=== PATIENT | male | born 1980 | race Caucasian/White ===

== ENCOUNTER 2019-11-01 20:48 | Emergency (ER) | payer SELFPAY ==
[2019-11-01 21:13] VITALS: PULSE 91; RESP 18; TEMP 36.4; O2SAT 96; BMI 31.1
--- NOTE | 2019-11-01 21:20 | PC.NURSE ---
Justin Espinosa pt's rosie [phone]. Wishes to provide information regarding pt's cc
--- NOTE | 2019-11-01 21:23 | W.ED.BACK ---
HPI - Back Pain/Injury General: Chief Complaint: Back Pain/Injury Stated Complaint: back pain Time Seen by Provider: 11/01/19 21:13 History of Present Illness: HPI Narrative: Patient is a 39-year-old male who comes to the ED with back pain. Back pain started last Wednesday, October 27. 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 Patient says he was working over his 's car and stepped in a pothole with his left foot and kind of jolted his lower back and ever since then he has had left lower back pain along with pain radiating down left leg to his knee. Patient went to [facility] 2 days ago and was given a muscle relaxer and diclofenac. Pain has not improved and only gotten worse. Patient reports some muscle spasms on left lumbar region as well. He reports having subjective fever and chills these past couple days. Denies dysuria or hematuria. He does state that his urine is darker in color. Denies any bladder or bowel incontinence or any pelvic anesthesia. He describes pain being worse when he gets up and walks and when he ambulates pain continually runs down his left leg. Associated symptoms: Deny abdominal pain, chills, dysuria, fatigue, fever(s), hematuria, nausea or vomiting Review of Systems Const: Denies: fever, chills or fatigue Eyes: Denies: change in vision or eye discomfort ENMT: Denies: throat pain, painful swallowing, nasal discharge or nasal congestion Card: Denies: chest pain, palpitations, edema, swelling of feet/ankles, shortness of breath on exertion or shortness of breath when lying down Resp: Denies: shortness of breath, productive cough or non-productive cough GI: Denies: abdominal pain, nausea, vomiting, diarrhea, constipation or blood in stool : Denies: flank pain, difficulty urinating, painful urination or blood in urine Musc: Reports: back pain; Denies: neck pain or extremity swelling Skin/Breast: Denies: rash or new lesion Neuro: Denies: headache, numbness in extremities or weakness in extremities PFSH ED PFSH: Social History Smoking and tobacco status: current every day smoker Physical Exam Narrative: EXAM NARRATIVE: Patient is a 39-year-old male that sitting in the chair when I enter the exam room. Patient continually was changing positions to get comfortable during history and physical exam. Const: COMMON NORMALS: oriented x3 HENMT: COMMON NORMALS: normocephalic HEAD & SCALP: normocephalic MOUTH: oral and palatal mucosa normal THROAT: posterior oropharynx normal and uvula midline Eye: COMMON NORMALS: PERRL PUPIL: Yes PERRL Neck/C-Spine: COMMON NORMALS: supple GENERAL: Yes normal visual inspection Resp: COMMON NORMALS: normal respiratory effort, no retractions, no use of accessory muscles and clear to auscultation bilaterally AUSCULTATION: clear to auscultation bilaterally Cardio: COMMON NORMALS: regular rate, regular rhythm, S1 normal heart sound, S2 normal heart sound, no gallops, no clicks, no murmurs and peripheral pulses 2+ throughout RATE: regular rate RHYTHM: regular rhythm HEART SOUNDS: S1 normal and S2 normal PERIPHERAL PULSES: pulses 2+ throughout GI: COMMON NORMALS: normal to inspection, nondistended, normoactive bowel sounds, soft to palpation, non-tender and no masses PALPATION: Yes soft : BLADDER/KIDNEY EXAM: Yes CVA tenderness Back/Pelvis: GENERAL BACK: Yes CVA tenderness CVA tenderness: left THORACIC SPINE/UPPER BACK: No thoracic spinal tenderness and No paraspinal muscle tenderness LUMBAR SPINE/LOWER BACK: No lumbar spinal tenderness and Yes paraspinal muscle tenderness Lumbar paraspinal muscle tenderness: left left lumbar paraspinal muscle tenderness: L4 and L5 Extremity: COMMON NORMALS: normal to inspection and no pedal edema Neuro: COMMON NORMALS: oriented x3 and moves all extremities Skin: COMMON NORMALS: no rashes or lesions noted GENERAL SKIN EXAM: no rashes or lesions noted and dry skin Course Vital Signs: Vital signs: Vital Signs Temperature 97.6 F 11/01/19 21:13 Pulse Rate 98 11/01/19 22:28 Respiratory Rate 18 11/01/19 22:28 Blood Pressure 125/92 11/01/19 22:28 Pulse Oximetry 97 11/01/19 22:28 MDM - Back Pain/Injury MDM Narrative: Medical decision making narrative: Patient wants to leave AMA. I went discussed with patient that he had low sodium levels and that I wanted to start an IV and get him some fluids. I also informed patient I wanted to see what his urinalysis results were, but patient refuses waiting and wants to leave now. Patient says he will come back if he needs to. I told him I think he needs to stay get IV fluids and to check the urine. Patient still states he wants to leave AMA. Patient was not able to get an official discharge and instructions. Lab Data: Attestation: I reviewed the patient's lab results. Labs: Lab Results 11/01/19 11/01/19 11/01/19 Range/Units 21:55 21:55 22:20 WBC 6.2 (4.0-10.0) 10^3/ uL RBC 4.98 (4.1-5.3) 10^6/u L Hgb 15.6 (11.7-16.6) g/dL Hct 45.0 (42.0-52.0) % MCV 90.4 (80-94) fL MCH 31.3 (28.0-34.0) pg MCHC 34.7 (30.0-36.0) g/dL RDW 11.6 L (12.1-15.1) % Plt Count 103 L (130-400) 10^3/c mm MPV 12.6 H (7.4-10.4) fL Neut % (Auto) 79.8 % Lymph % (Auto) 8.3 % [place] % (Auto) 10.7 % Eos % (Auto) 0.2 % Baso % (Auto) 0.5 % Neut # (Auto) 4.9 (1.8-7.7) 10^3/u L Lymph # (Auto) 0.5 L (0.8-4.8) 10^3/u L [place] # (Auto) 0.7 (0.2-0.9) 10^3/u L Eos # (Auto) 0.0 (0.0-0.8) 10^3/u L Baso # (Auto) 0.0 (0.0-0.1) 10^3/u L Nucleated RBC % (a uto) 0 % Nucleated RBCs # 0.0 /100WBC Sodium 124 L (136-145) mmol/L Potassium 4.1 (3.5-5.1) mmol/L Chloride 85 L (98-107) mmol/L Carbon Dioxide 24 (22-29) mmol/L Anion Gap 19.1 H (5-19) BUN 19 (6-20) mg/dL Creatinine 1.1 (0.7-1.2) mg/dL GFR Calculation 74.1 L (90-130) mL/min Glucose 123 H (65-115) mg/dL Calculated Osmolal ity 256 L (285-295) mOsm/k g Calcium 8.9 (8.5-10.5) mg/dL Total Bilirubin 2.4 H (0.15-1.2) mg/dL AST 115 H (0-40) U/L ALT 73 H (0-41) U/L Alkaline Phosphata se 85 (40-130) IU/L Total Protein 7.2 (6.6-8.7) g/dL Albumin 4.2 (3.5-5.2) g/dL Globulin 3.0 (1.3-4.6) g/dL Urine Color Yellow (Yellow) Urine Appearance Clear (CLEAR) Urine pH 6 (5-7) Ur Specific Gravit y 1.005 (1.005-1.030) Urine Protein Neg (Negative) Urine Glucose (UA) Norm (Normal) Urine Ketones 1+ H (Negative) Urine Blood 3+ H (Negative) Urine Nitrate Negative (Negative) Urine Bilirubin Neg (NEGATIVE) Urine Urobilinogen Norm (Negative) mg/dL Ur Leukocyte [place] Negative (Negative) Urine RBC 0-4 H (0-2) /hpf Urine WBC 5-10 H (0-5) /hpf Ur Squamous Epith Cells 0-4 H (0-5) Urine Bacteria 1+ H (NONE) Discharge Plan Discharge Patient Disposition: Left Against Medical Advice Prescriptions: No Action diclofenac-misoprostol 75-200 mg-mcg Tablet,Ir,Delayed Rel,Biphasic 1 tab PO BID RF: 0 cyclobenzaprine 10 mg Tablet 10 mg PO TID RF: 0 Referrals: Christianne Novak FNP [Primary Care Provider] - Discharge Date/Time: 11/01/19 22:55 Coding Level of Care Code ED Transfer Coordinator for g Fwd Exam Comprehensive
[2019-11-01 21:37] VITALS: BP 130/81; PULSE 96; RESP 16; O2SAT 97
[2019-11-01] MEDS: HYDROcodone-acetaminophen 7.5-325 mg Tablet 1 TAB PO (22:06)
[2019-11-01] MEDS: predniSONE 20 mg Tablet 60 MG PO (22:06)
[2019-11-01 22:10] LABS: Basophils % 0.5 %; Eosinophils % 0.2 %; Hemoglobin 15.6 g/dL (11.7-16.6); Lymphocytes # 0.5 10^3/uL (0.8-4.8); Lymphocytes % 8.3 %; Mean Corpuscular HGB Conc 34.7 g/dL (30.0-36.0); Mean Corpuscular Hemoglobin 31.3 pg (28.0-34.0); Mean Corpuscular Volume 90.4 fL (80-94); Mean Platelet Volume 12.6 fL (7.4-10.4); Monocytes # 0.7 10^3/uL (0.2-0.9); Monocytes % 10.7 %; Neutrophils # 4.9 10^3/uL (1.8-7.7); Neutrophils % 79.8 %; Nucleated Red Blood Cells % 0 %; Platelet Count 103 10^3/cmm (130-400); Red Blood Count 4.98 10^6/uL (4.1-5.3); Red Cell Distribution Width 11.6 % (12.1-15.1); White Blood Count 6.2 10^3/uL (4.0-10.0)
[2019-11-01 22:23] LABS: Alanine Aminotransferase 73 U/L (0-41); Albumin Level 4.2 g/dL (3.5-5.2); Alkaline Phosphatase 85 IU/L (40-130); Anion Gap 19.1 (5-19); Aspartate Amino Transferase 115 U/L (0-40); Blood Urea Nitrogen 19 mg/dL (6-20); Calcium 8.9 mg/dL (8.5-10.5); Carbon Dioxide 24 mmol/L (22-29); Chloride 85 mmol/L (98-107); Creatinine Clr Calc Pharmacy 111.4778; Glomerular Filtration Rate 74.1 mL/min (90-130); Glucose 123 mg/dL (65-115); Osmolality Calculated 256 mOsm/kg (285-295); Potassium 4.1 mmol/L (3.5-5.1); Sodium 124 mmol/L (136-145); Total Bilirubin 2.4 mg/dL (0.15-1.2); Total Protein 7.2 g/dL (6.6-8.7)
[2019-11-01 22:28] VITALS: BP 125/92; PULSE 98; RESP 18; O2SAT 97
[2019-11-01 23:09] LABS: Bacteria Urine 1+; Bilirubin Urine Neg (NEGATIVE); Blood Urine 3+ (Negative); Glucose Urine UA Norm (Normal); Ketones Urine 1+ (Negative); Leukocyte Esterase Urine Negative (Negative); Nitrate Urine Negative (Negative); Protein Urine Neg (Negative); RBC Urine 0-4 /hpf (0-2); Specific Gravity, Urine 1.005 (1.005-1.030); Squamous Epithelial Cell Urine 0-4 (0-5); Urine Appearance Clear (CLEAR); Urine Color Yellow (Yellow); Urobilinogen Urine Norm (Negative); pH Urine 6 (5-7)
== END 2019-11-01 22:55 | disposition left against medical advice (07) ==
PROVIDERS: Emergency Provider Physician Assistant; PCP Nurse Practitioner
DX: M54.9 Dorsalgia, unspecified (principal); Z53.21 Procedure and treatment not carried out due to patient leaving prior to being seen by health care provider; F17.210 Nicotine dependence, cigarettes, uncomplicated
CPT/HCPCS: 12345; 36415; 80053; 81001; 85025; 99282; 99283; J2360; J7512

== ENCOUNTER → 2021-11-19 13:16 | Outpatient (BNVA) | payer OTHER, SELFPAY | PROVIDERS: PCP Nurse Practitioner; Visit Provider Nurse Practitioner Family | DX: Z02.1 Encounter for pre-employment examination (principal) | CPT/HCPCS: 80307 ==